=== PATIENT | female | born 1940 | race African-American/Black ===

== ENCOUNTER 2018-12-25 15:56 | Inpatient (IN) | payer MEDICARE, OTHER ==
[~2018-12-25] VITALS: Ht 154.9 cm; Wt 86.0 kg
[~2018-12-25 15:56] MED LIST: OXYM15MI4 NS; TRAM-48 PO
--- NOTE | 2018-12-25 16:56 | PHYS DOC ---
Past History Past Medical History: Bronchitis, Hypertension, Renal Disease (DA ROSALES DO) Past Surgical History: Cholecystectomy, Tubal ligation, Other Additional Past Surgical Histo: back surgery (DA ROSALES DO) Alcohol Use: None Drug Use: None (DA ROSALES DO) Adult General Chief Complaint Chief Complaint: HYPERTENSION HPI HPI 78-year-old female presents with hypertension. She was sent her by her user experience manager. At the office she had blood pressure of 200/110. He recommended she come to the emergency room. The patient is only on metoprolol and Lasix. The metoprolol is for rate control and the Lasix for swelling. The patient is unsure how long she's had high blood pressure. She has CKD stage III. She denies fever or chills. Her only complaint is the feeling of something in her left ear. Denies change in hearing. She has no other complaints. (DA ROSALES DO) Review of Systems Review of Systems Constitutional: Denies fever or chills [] Eyes: Denies change in visual acuity, redness, or eye pain [] HENT: Feeling of object in left ear[] Respiratory: Denies cough or shortness of breath [] Cardiovascular: No additional information not addressed in HPI [] GI: Denies abdominal pain, nausea, vomiting, bloody stools or diarrhea [] : Denies dysuria or hematuria [] Musculoskeletal: Denies back pain or joint pain [] Integument: Denies rash or skin lesions [] Neurologic: Denies headache, focal weakness or sensory changes [] Endocrine: Denies polyuria or polydipsia [] All other systems were reviewed and found to be within normal limits, except as documented in this note. (DA ROSALES DO) Allergies Allergies Allergies Coded Allergies Type Severity Reaction Last Updated Verified No Known Drug Allergies 12/25/18 No (DA ROSALES DO) Physical Exam Physical Exam Constitutional: Well developed, obese, well nourished, no acute distress, non- toxic appearance. [] HENT: Normocephalic, atraumatic, bilateral external ears normal, oropharynx moist, no oral exudates, nose normal. Patient's left tympanic membrane and ear canal normal. Mild amount of wax.[] Eyes: PERRLA, EOMI, conjunctiva normal, no discharge. [] Neck: Normal range of motion, no tenderness, supple, no stridor. [] Cardiovascular:Heart rate regular rhythm, no murmur [] Lungs & Thorax: Bilateral breath sounds clear to auscultation [] Abdomen: Bowel sounds normal, soft, no tenderness, no masses, no pulsatile masses. [] Skin: Warm, dry, no erythema, no rash. [] Back: No tenderness, no CVA tenderness. [] Extremities: No tenderness, no cyanosis, no clubbing, ROM intact, 2+ non-pitting edema bilaterally to the knees. [] Neurologic: Alert and oriented X 3, normal motor function, normal sensory function, no focal deficits noted. [] Psychologic: Affect normal, judgement normal, mood normal. [] (DA ROSALES DO) Current Patient Data Vital Signs Vital Signs Date Time Temp Pulse Resp B/P (MAP) Pulse Ox O2 Delivery O2 Flow Rate FiO2 12/25/18 16:09 98.0 76 30 100 Room Air (DA ROSALES DO) EKG EKG [] (DA ROSALES DO) Radiology/Procedures Radiology/Procedures [] (DA ROSALES DO) Course & Med Decision Making Course & Med Decision Making Pertinent Labs and Imaging studies reviewed. (See chart for details) I gave the patient 25 mg of losartan as this would be a first-line potential treatment for hypertension in a CKD patient. Her pressure has improved to 164/97. Her labs are pending. The patient's workup is still pending. I am signing the patient out to Dr. Hoffmann at 1800 hrs. He will determine her final disposition. [] (DA ROSALES DO) Course & Med Decision Making Impression: 1. Accelerated HTN 2. Hypokalemia 3.1 3. Chronic Renal Dz Creat 1.5 4. CHF- Acute on Chronic BNP 6859 5. Hx CADz, Elevated Trop. 0.098 6. Afib vs PAC's 7. Blind- congenital cataracts Admit to Dr. Braswell (MERARI HOFFMANN MD) Melissa Disclaimer Melissa Disclaimer This electronic medical record was generated, in whole or in part, using a voice recognition dictation system. (DA ROSALES DO) Departure Departure: Impression: Primary Impression: Hypertension Disposition: HOME, SELF-CARE Condition: IMPROVED Referrals: CHRISTINE XIAO MD (PCP) Melissa Disclaimer This chart was dictated in whole or in part using Voice Recognition software in a busy, high-work load, and often noisy Emergency Department environment. It may contain unintended and wholly unrecognized errors or omissions. (MERARI HOFFMANN MD) Problem Qualifiers Primary Impression: Hypertension Hypertension type: unspecified Qualified Codes: I10 - Essential (primary) hypertension DA ROSALES DO Dec 25, 2018 16:56 MERARI HOFFMANN MD Dec 25, 2018 19:09
[2018-12-25] MEDS ORDERED: LOSARTAN 25 MG TABLET. PO STA (16:58)
[2018-12-25] MEDS ORDERED: LOSA25TA11 PO (17:28)
[2018-12-25 17:57] LABS: ALBUMIN 3.4 g/dL (3.4-5.0); ALBUMIN/GLOBULIN RATIO 0.9 (1.0-1.7); CALCIUM 8.8 mg/dL (8.5-10.1); CREATININE 1.5 mg/dL (0.6-1.0); GFR 40.4; POTASSIUM 3.1 mmol/L (3.5-5.1); TOTAL BILIRUBIN 0.7 mg/dL (0.2-1.0); TOTAL PROTEIN 7.2 g/dL (6.4-8.2)
[2018-12-25 18:07] LABS: BASO % 0 % (0-3); EOS # 0.1 x10^3/uL (0.0-0.7); EOS % 1 % (0-3); HEMATOCRIT 36.5 % (36.0-47.0); HEMOGLOBIN 12.1 g/dL (12.0-15.5); LYMPH # 1.1 x10^3/uL (1.0-4.8); LYMPH % 10 % (24-48); MEAN CORPUSCULAR HEMOGLOBIN 32 pg (25-35); MEAN CORPUSCULAR HGB CONC 33 g/dL (31-37); MEAN CORPUSCULAR VOLUME 95 fL (79-100); MONO # 0.5 x10^3/uL (0.0-1.1); MONO % 5 % (0-9); NEUT # 8.4 x10^3uL (1.8-7.7); NEUT % 83 % (31-73); PLATELET COUNT 252 x10^3/uL (140-400); RED BLOOD COUNT 3.85 x10^6/uL (3.50-5.40); RED CELL DISTRIBUTION WIDTH 13.3 % (11.5-14.5); WHITE BLOOD COUNT 10.2 x10^3/uL (4.0-11.0)
[2018-12-25] MEDS ORDERED: cloNIDine HCL 0.1 MG TABLET PO ONE (18:30)
[2018-12-25] MEDS ORDERED: cloNIDine TTS-2 1 PATCH PATCH TD ONE ×2 (18:30→19:30)
[2018-12-25] MEDS ORDERED: POTASSIUM CHLORIDE 20 MEQ TABLET.ER. PO ONE ×2 (18:30→19:30)
[2018-12-25] MEDS ORDERED: FUROSEMIDE 40 MG/4 ML VIAL IVP ONE ×2 (18:30→19:30)
--- NOTE | 2018-12-25 19:12 | EKG ---
[address] [address] Test Date: 2018-12-25 Test Time: 18:43:34 Pat Name: MAGDA ROSALES Department: Room: Gender: F [employer]: : 1940 Requested By: MERARI RIZVI Order Number: [id number] Reading MD: Keon Duval MD Measurements Intervals [place] Rate: 77 P: 43 MS: 158 QRS: 60 QRSD: 78 T: -22 QT: 388 QTc: 441 Interpretive Statements SINUS RHYTHM ATRIAL PREMATURE COMPLEX(ES) Electronically Signed On 01-06-2019 22:05:57 CDT by Keon Duval MD
[2018-12-25] MEDS ORDERED: ONDANSETRON PF 4 MG/2 ML VIAL. IV PRN (19:15)
[2018-12-25] MEDS ORDERED: ACETAMINOPHEN 325 MG TABLET PO PRN (19:15)
[2018-12-25 20:04] LABS: BACTERIA,URINE FEW /HPF (0-FEW); BILIRUBIN,URINE NEG (NEG); CLARITY,URINE CLEAR; COLOR,URINE YELLOW; GLUCOSE,URINE NEG (NEG); NITRITE,URINE NEG (NEG); SQUAMOUS EPITHELIAL CELL,UR FEW /LPF; UROBILINOGEN,URINE 0.2 mg/dL (0.2 mg/dL)
[2018-12-25 20:45] VITALS: BP 172/82
[2018-12-25 20:46] VITALS: BP 165/89
[2018-12-25] MEDS ORDERED: ENOXAPARIN ** NOTE DOSE ** SYRINGE SQ SCH (21:00)
[2018-12-25] MEDS ORDERED: NITROGLYCERIN OINT 1 GM PACKET. TP SCH (21:00)
[2018-12-25] MEDS ORDERED: RAMI10CA53 PO (22:17)
[2018-12-25] MEDS ORDERED: METO200T46 PO (22:17)
[2018-12-25] MEDS ORDERED: FURO40TA4 PO (22:17)
[2018-12-25] MEDS ORDERED: ALLO100T PO (22:17)
[2018-12-25] MEDS ORDERED: OMEP40CA5 PO (22:17)
[2018-12-25] MEDS ORDERED: PARI1CAP PO (22:17)
--- NOTE | 2018-12-25 22:23 | NUR ---
The patient, MAGDA ROSALES, 78 y/o, F admitted by DARIN PATEL MD, was given written information regarding hospital policies, unit procedures and contact persons. Valuables were checked and noted. PT oriented to unit. Reviewed PTs PMH, PSH, SH, FH and medications.
[2018-12-25 23:05] VITALS: BP 151/83
[2018-12-26 05:30] VITALS: BP 138/80
[2018-12-26 07:37] LABS: BASO # 0.1 x10^3/uL (0.0-0.2); BASO % 1 % (0-3); EOS # 0.1 x10^3/uL (0.0-0.7); EOS % 1 % (0-3); HEMATOCRIT 35.7 % (36.0-47.0); HEMOGLOBIN 11.9 g/dL (12.0-15.5); LYMPH # 1.6 x10^3/uL (1.0-4.8); LYMPH % 20 % (24-48); MEAN CORPUSCULAR HEMOGLOBIN 31 pg (25-35); MEAN CORPUSCULAR HGB CONC 33 g/dL (31-37); MEAN CORPUSCULAR VOLUME 94 fL (79-100); MONO # 0.6 x10^3/uL (0.0-1.1); MONO % 7 % (0-9); NEUT # 5.8 x10^3uL (1.8-7.7); NEUT % 71 % (31-73); PLATELET COUNT 238 x10^3/uL (140-400); RED BLOOD COUNT 3.81 x10^6/uL (3.50-5.40); RED CELL DISTRIBUTION WIDTH 13.4 % (11.5-14.5); WHITE BLOOD COUNT 8.2 x10^3/uL (4.0-11.0)
--- NOTE | 2018-12-26 07:40 | RAD ---
EXAM: AP View of the chest DATE: 12/25/2018 6:13 PM INDICATION: Shortness of air, crackles COMPARISON: 02/17/2014 FINDINGS: The heart is moderately enlarged. Atherosclerotic calcifications of the tortuous aorta are seen. Retrocardiac left lung base airspace opacities are seen. Small left pleural effusion. No pneumothorax. IMPRESSION: Cardiac airspace opacities may represent developing consolidation or atelectasis. Imaging follow-up to resolution is recommended. Electronically signed by: Aamir Daniel MD (12/26/2018 7:37 AM) [facility]
[2018-12-26 07:51] LABS: CALCIUM 8.8 mg/dL (8.5-10.1); CREATININE 1.5 mg/dL (0.6-1.0); GFR 40.4; MAGNESIUM 1.1 mg/dL (1.8-2.4)
[2018-12-26] MEDS ORDERED: MAGNESIUM OXIDE 400 MG TABLET PO SCH (09:00)
--- NOTE | 2018-12-26 09:19 | PDOC2 ---
SHANTANU MUNROE ANTHROPOLOGY AND ARCHEOLOGY INSTRUCTOR 12/26/18 0919: CARDIAC CONSULT DATE OF CONSULT Date Of Consult DATE: 12/26/18 TIME: 09:17 REASON FOR CONSULT Reason for Consult Accelerated Hypertension CHF Elevated Troponin REFERRING PHYSICIAN Referring Physician Dr. Braswell SOURCE Source: Chart review, Patient HPI History of Present Illness This is an 78 yo female, with a history of HTN and CKD, who presented from nephrology office secondary to elevated blood pressure. SBP noted near 200. Was referred to the ED for further evaluation and treatment. Patient denies any chest pain, palpitations, dizziness, diaphoresis, or nausea/vomiting. Does report some mild shortness of breath recently. Was worse yesterday. Takes Lasix at home PRN, but does not weigh herself daily. Feeling better following diuresis. PAST MEDICAL HISTORY Cardiovascular: HTN, hyperipidemia GI: GERD Heme/Onc: Anemia NOS Musculoskeletal: Osteoarthritis Rheumatologic: Gout Renal/: Chronic renal insuff PAST SURGICAL HISTORY Past Surgical History: Cholecystectomy, Tubal Ligation, Other (back surgery, eye surgery ) FAMILY HISTORY Family History: Cancer, Heart Disease (father ), Hypertension SOCIAL HISTORY Smoke: No ALCOHOL: none Drugs: None Lives: with Family CURRENT MEDICATIONS Current Medications Current Medications Losartan Potassium (Cozaar) 25 mg 1X STAT PO Last administered on 12/25/18at 17:15; Start 12/25/18 at 16:58; Stop 12/25/18 at 16:59; Status DC Clonidine HCl (Catapres) 0.1 mg 1X ONCE PO Last administered on 12/25/18at 18:23; Start 12/25/18 at 18:30; Stop 12/25/18 at 18:31; Status DC Clonidine HCl (Catapres Tts-2) 1 patch 1X ONCE TD Last administered on 12/25/18at 18:23; Start 12/25/18 at 18:30; Stop 12/25/18 at 18:31; Status DC Furosemide (Lasix) 40 mg 1X ONCE IVP Last administered on 12/25/18at 18:24; Start 12/25/18 at 18:30; Stop 12/25/18 at 18:31; Status DC Potassium Chloride (Klor-Con) 40 meq 1X ONCE PO Last administered on 12/25/18at 18:24; Start 12/25/18 at 18:30; Stop 12/25/18 at 18:31; Status DC Ondansetron HCl (Zofran) 4 mg PRN Q4HRS PRN IV NAUSEA/VOMITING; Start 12/25/18 at 19:15; Stop 12/26/18 at 19:14 Acetaminophen (Tylenol) 650 mg PRN Q4HRS PRN PO FEVER; Start 12/25/18 at 19:15; Stop 12/26/18 at 19:14 Clonidine HCl (Catapres Tts-2) 1 patch 1X ONCE TD ; Start 12/25/18 at 19:30; Stop 12/25/18 at 19:31; Status Cancel Furosemide (Lasix) 40 mg 1X ONCE IVP ; Start 12/25/18 at 19:30; Stop 12/25/18 at 19:31; Status DC Potassium Chloride (Klor-Con) 40 meq 1X ONCE PO Last administered on 12/25/18at 22:38; Start 12/25/18 at 19:30; Stop 12/25/18 at 19:31; Status DC Aspirin (Children'S Aspirin) 81 mg DAILY PO ; Start 12/26/18 at 09:00 Enoxaparin Sodium (Lovenox 80mg Syringe) 80 mg BID SQ Last administered on 12/25/18at 22:38; Start 12/25/18 at 21:00 Nitroglycerin (Nitro-Bid Oint) 1 inch TID TP Last administered on 12/25/18at 22:38; Start 12/25/18 at 21:00 Influenza Virus Vaccine Quadrival (Afluria Quad 2019-20 (3yr Up) Syringe) 0.5 ml ONCE ONCE VAX IM ; Start 12/27/18 at 09:00; Stop 12/27/18 at 09:01; Status UNV Magnesium Oxide (Magnesium Oxide) 400 mg BID PO ; Start 12/26/18 at 09:00; Stop 12/27/18 at 21:01 Active Scripts Active Reported Allopurinol 100 Mg Tablet 100 Mg PO DAILY Furosemide 40 Mg Tablet 40 Mg PO DAILY Omeprazole 40 Mg Capsule.dr 40 Mg PO DAILY Ramipril 10 Mg Capsule 10 Mg PO DAILY Zemplar (Paricalcitol) 1 Mcg Capsule 1 Mcg PO DAILY Metoprolol Succinate ( Xl ) (Metoprolol Succinate) 200 Mg Tab.er.24h 200 Mg PO DAILY ALLERGIES Allergies: Coded Allergies: No Known Drug Allergies (Unverified , 12/25/18) ROS Review of Systems 14 point ROS conducted with pertinent positives noted above in HPI PHYSICAL EXAM General: Alert, Oriented X3, Cooperative, No acute distress HEENT: Atraumatic, Mucous membr. moist/pink Lungs: Clear to auscultation Heart: Regular rate, Normal S1, Normal S2, Other (distant heart tones ) Abdomen: Soft, No tenderness Extremities: No edema Skin: No breakdown Neuro: Normal speech, Sensation intact Psych/Mental Status: Mental status NL, Mood NL MUSCULOSKELETAL: Osteoarthritic changes both hands VITALS Vital Signs Vital Signs Date Time Temp Pulse Resp B/P (MAP) Pulse Ox O2 Delivery O2 Flow Rate FiO2 12/26/18 05:30 97.6 81 20 138/80 (99) 93 Room Air LABS LABS Laboratory Tests Test 12/25/18 17:05 12/25/18 17:48 12/25/18 19:00 12/26/18 07:28 Sodium Level 140 mmol/L (136-145) 143 mmol/L (136-145) Potassium Level 3.1 mmol/L (3.5-5.1) 4.0 mmol/L (3.5-5.1) Chloride Level 103 mmol/L (98-107) 103 mmol/L (98-107) Carbon Dioxide Level 28 mmol/L (21-32) 29 mmol/L (21-32) Anion Gap 9 (6-14) 11 (6-14) Blood Urea Nitrogen 14 mg/dL (7-20) 13 mg/dL (7-20) Creatinine 1.5 mg/dL (0.6-1.0) 1.5 mg/dL (0.6-1.0) Estimated GFR (Cockcroft-Gault) 40.4 40.4 BUN/Creatinine Ratio 9 (6-20) Glucose Level 100 mg/dL (70-99) 86 mg/dL (70-99) Calcium Level 8.8 mg/dL (8.5-10.1) 8.8 mg/dL (8.5-10.1) Total Bilirubin 0.7 mg/dL (0.2-1.0) Aspartate Amino Transf (AST/SGOT) 14 U/L (15-37) Alanine Aminotransferase (ALT/SGPT) 6 U/L (14-59) Alkaline Phosphatase 86 U/L (46-116) QA-Kmm-N-Type Natriuretic Peptide 6859 pg/mL (0-449) Total Protein 7.2 g/dL (6.4-8.2) Albumin 3.4 g/dL (3.4-5.0) Albumin/Globulin Ratio 0.9 (1.0-1.7) White Blood Count 10.2 x10^3/uL (4.0-11.0) 8.2 x10^3/uL (4.0-11.0) Red Blood Count 3.85 x10^6/uL (3.50-5.40) 3.81 x10^6/uL (3.50-5.40) Hemoglobin 12.1 g/dL (12.0-15.5) 11.9 g/dL (12.0-15.5) Hematocrit 36.5 % (36.0-47.0) 35.7 % (36.0-47.0) Mean Corpuscular Volume 95 fL (79-100) 94 fL (79-100) Mean Corpuscular Hemoglobin 32 pg (25-35) 31 pg (25-35) Mean Corpuscular Hemoglobin Concent 33 g/dL (31-37) 33 g/dL (31-37) Red Cell Distribution Width 13.3 % (11.5-14.5) 13.4 % (11.5-14.5) Platelet Count 252 x10^3/uL (140-400) 238 x10^3/uL (140-400) Neutrophils (%) (Auto) 83 % (31-73) 71 % (31-73) Lymphocytes (%) (Auto) 10 % (24-48) 20 % (24-48) Monocytes (%) (Auto) 5 % (0-9) 7 % (0-9) Eosinophils (%) (Auto) 1 % (0-3) 1 % (0-3) Basophils (%) (Auto) 0 % (0-3) 1 % (0-3) Neutrophils # (Auto) 8.4 x10^3uL (1.8-7.7) 5.8 x10^3uL (1.8-7.7) Lymphocytes # (Auto) 1.1 x10^3/uL (1.0-4.8) 1.6 x10^3/uL (1.0-4.8) Monocytes # (Auto) 0.5 x10^3/uL (0.0-1.1) 0.6 x10^3/uL (0.0-1.1) Eosinophils # (Auto) 0.1 x10^3/uL (0.0-0.7) 0.1 x10^3/uL (0.0-0.7) Basophils # (Auto) 0.0 x10^3/uL (0.0-0.2) 0.1 x10^3/uL (0.0-0.2) Troponin I Quantitative 0.098 ng/mL (0-0.055) 0.155 ng/mL (0-0.055) Urine Collection Type Unknown Urine Color Yellow Urine Clarity Clear Urine pH 5.5 Urine Specific [place] 1.010 Urine Protein Trace (NEG-TRACE) Urine Glucose (UA) Neg mg/dL (NEG) Urine Ketones (Stick) Neg mg/dL (NEG) Urine Blood Trace (NEG) Urine Nitrite Neg (NEG) Urine Bilirubin Neg (NEG) Urine Urobilinogen Dipstick 0.2 mg/dL (0.2 mg/dL) Urine Leukocyte Esterase Neg (NEG) Urine RBC 3-5 /HPF (0-2) Urine WBC 1-4 /HPF (0-4) Urine Squamous Epithelial Cells Few /LPF Urine Bacteria Few /HPF (0-FEW) Magnesium Level 1.1 mg/dL (1.8-2.4) ECHOCARDIOGRAM Echocardiogram <Conclusion> The left ventricle is normal size. The left ventricular systolic function is normal. The Ejection Fraction is 55-60%. There is no significant aortic valvular stenosis. Doppler and Color Flow revealed no significant aortic regurgitation. Doppler and Color Flow revealed mild mitral regurgitation. Doppler and Color Flow revealed moderate tricuspid regurgitation. The PA pressure was estimated at 50 mmHg. Doppler and Color Flow revealed mild pulmonic valvular regurgitation. There is no evidence of significant pericardial effusion. DATE: 01/14/14 1419 STRESS TEST Stress Test Conclusion 1. No EKG evidence of inducible ischemia. 2. Nuclear images on a technically difficult study show inferior reversible ischemia. 3. Normal left ventricular systolic function with an ejection fraction of 72%. 4. Moderate risk Lexiscan nuclear stress test showing reversible ischemia in the inferior region. DATE: 01/14/14 1443 HEART CATH Heart Cath FINDINGS: 1. Hemodynamics: Normal left ventricular end-diastolic pressure of 15 mmHg. No pullback gradient across the aortic valve. 2. Left ventriculography: Normal left ventricle systolic function with ejection fraction estimated at 60%. No significant mitral regurgitation seen. 3. Coronary angiography: a. The left main coronary artery arose from the left sinus of Valsalva, gave rise to the left anterior descending and left circumflex arteries and did not show any significant stenosis. b. The left anterior descending artery did not show any significant stenosis. c. The left circumflex artery did not show any significant stenosis. d. The right coronary artery was a large and dominant vessel arising from the right sinus of Valsalva that did not show any significant stenosis. Conclusion 1. No significant coronary artery disease 2. Normal left ventricle systolic function with ejection fraction estimated at 60% 3. No significant mitral regurgitation or aortic stenosis. DATE: 02/04/14 1143 ASSESSMENT/PLAN Assessment/Plan 1. Accelerated hypertension; reports compliance with meds 2. Mild troponin elevation; highest 0.155. most probably type II, demand ischemic in the setting of accelerated HTN and CKD. Cath 2014 without significant CAD 3. Dyspnea in the setting of acute on chronic diastolic HF; Improved with diuresis 4. CKD; Cr stable. 5. Hypokalemia, hypomagnesemia; replaced Recommendations ASA Echo to assess LV systolic function Resume home antiHTN therapy. Add amlodipine Hydralazine PRN Daily weights, 2 Gm Na restriction Lasix therapy BERTO RODRIGUEZ MD 12/26/18 7629: CARDIAC CONSULT ASSESSMENT/PLAN Assessment/Plan Patient seen and examined. Agree with above nurse practitioner note. 78-year-old woman presenting to the hospital the setting of dyspnea and hypertension She was found to have severe tricuspid regurgitation with severe pulmonary hypertension Depending on the goals of care she will likely need a right heart catheterization and further titration of medical therapy. We'll await discussion with her family members and consider inpatient versus outpatient evaluation. Continue diuretics. Supportive care. SHANTANU MUNROE APRN Dec 26, 2018 09:19 BERTO RODRIGUEZ MD Dec 26, 2018 18:54
[2018-12-26] MEDS ORDERED: hydrALAZINE 20 MG/ML VIAL. IV PRN (09:30)
[2018-12-26 09:51] VITALS: BP 167/86
[2018-12-26] MEDS ORDERED: FUROSEMIDE 40 MG TABLET PO SCH (10:00)
[2018-12-26] MEDS: FUROSEMIDE 20 MG TABLET PO SCH (10:29)
[2018-12-26] MEDS: ASPIRIN 81 MG TAB.CHEW PO SCH (10:29)
[2018-12-26] MEDS: LISINOPRIL 20 MG TABLET PO SCH (10:29)
[2018-12-26] MEDS: METOPROLOL SUCC 24HR ER 50 MG TAB.ER.24H. PO SCH (10:29)
--- NOTE | 2018-12-26 11:49 | NUR ---
Anju Bonilla APRN, hieu'd Nitro paste and Clonidine patch. This RN removed patch. Chad also restarted pt's home medications, and when called by this RN to verify Metoprolol dosing asked this RN to confirm with pt. This RN confirmed dose with pt and administered all medications as ordered. WCTM. Altagracia Rivero RN
[2018-12-26 15:06] VITALS: BP 142/83
--- NOTE | 2018-12-26 15:35 | CARD ---
MR#: [id number] Date of Study: 12/26/2018 Ordering Physician: SHANTANU MUNROE, Referring Physician: SHANTANU MUNROE, Tech: Parvin Barry RDCS APPROVED REPORT EXAM: Two-dimensional and M-mode echocardiogram with Doppler and color Doppler. Other Information Quality : AverageHR: 70bpm Rhythm : NSR INDICATION Elev troponin 2D DIMENSIONS RVDd3.8 (2.9-3.5cm)Left Atrium(2D)3.0 (1.6-4.0cm) IVSd0.7 (0.7-1.1cm)Aortic Root(2D)2.4 (2.0-3.7cm) LVDd4.1 (3.9-5.9cm)LVOT Diameter1.7 (1.8-2.4cm) PWd0.9 (0.7-1.1cm)LVDs2.9 (2.5-4.0cm) FS (%) 30.2 %SV44.1 ml LVEF(%)58.0 (>50%) M-Mode DIMENSIONS Left Atrium(MM)4.30 (2.5-4.0cm)Aortic Root2.67 (2.2-3.7cm) Aortic Valve AoV Peak Tim.149.3cm/sAoV VTI29.8cm AO Peak GR.8.9mmHgLVOT Peak Tim.92.3cm/s LVOT VTI 23.14cmAO Mean GR.4mmHg MARAL (VMAX)1.86fl9CJU (VTI)1.86cm2 Mitral Valve MV E Dlojmule183.4cm/sMV E Peak Gr.146mmHg MV DECEL [id number] A Hizibsva827.8cm/s MV E Mean Gr.5mmHgE/A Ratio1.3 Pulmonary Valve PV Peak Tmhxdrvh035.7cm/sPV Peak Grad.4mmHg Tricuspid Valve TR P. [id number]/sRAP EHPKUZPU2czCl TR Peak Gr.59jiQgOZMP36gkGa LEFT VENTRICLE The left ventricle is normal size. There is borderline concentric left ventricular hypertrophy. The l eft ventricular systolic function is normal and the ejection fraction is within normal range. The Eje ction Fraction is 55-60%. There is normal LV segmental wall motion. Transmitral Doppler flow pattern is Grade II-pseudonormal filling dynamics. RIGHT VENTRICLE The right ventricle is mildly dilated. There is normal right ventricular wall thickness. Systolic fun ction is mildly reduced. ATRIA The left atrium size is normal. The right atrium is mildly dilated. The interatrial septum is intact with no evidence for an atrial septal defect or patent foramen ovale as noted on 2-D or Doppler imagi ng. AORTIC VALVE The aortic valve is trileaflet. The aortic valve is mildly calcified. Doppler and Color Flow revealed no significant aortic regurgitation. There is no significant aortic valvular stenosis. MITRAL VALVE The mitral valve is mildly thickened. There is no evidence of mitral valve prolapse. There is mild mi tral valve stenosis. Calculated mitral valve area is 1.2 cm2 with maximum pressure gradient of 13 mmH g and mean pressure gradient of 5 mmHg. Doppler and Color-flow revealed moderate mitral regurgitation . TRICUSPID VALVE The tricuspid valve is normal in structure and function. Doppler and Color Flow revealed severe tricu spid regurgitation. Pulmonary artery pressure was greater than 80 mmHg. There is no tricuspid valve s tenosis. PULMONIC VALVE The pulmonic valve is not well visualized. GREAT VESSELS The aortic root is normal in size. The ascending aorta is normal in size. The IVC is normal in size a nd collapses >50% with inspiration. PERICARDIAL EFFUSION There is no evidence of significant pericardial effusion. Critical Notification Critical Value: No <Conclusion> The left ventricle is normal size. The left ventricular systolic function is normal and the ejection fraction is within normal range. The Ejection Fraction is 55-60%. There is borderline concentric left ventricular hypertrophy. There is no significant aortic valvular stenosis. Doppler and Color Flow revealed no significant aortic regurgitation. There is mild mitral valve stenosis. Calculated mitral valve area is 1.2 cm2 with maximum pressure gradient of 13 mmHg and mean pressure g radient of 5 mmHg. Doppler and Color-flow revealed moderate mitral regurgitation. Doppler and Color Flow revealed severe tricuspid regurgitation. Pulmonary artery pressure was greater than 80 mmHg. Signed by : Brendan Mccurdy MD Electronically Approved : 12/26/2018 15:34:54
--- NOTE | 2018-12-26 17:15 | NUR ---
Pt did not want dinner, stating, "What the doctors told me is a lot to think about." Pt was offered a [employer] bar and accepted and ate. WCTM. Altagracia Rivero RN
--- NOTE | 2018-12-26 17:27 | HP ---
ADMIT DATE: 12/25/2018 HISTORY OF PRESENT ILLNESS: The patient is an 78-year-old -[place] female patient who apparently was seen by her pan helper at the office. Her blood pressure was 200/110. He recommended that she come to the Emergency Room. She is only on metoprolol and Lasix, metoprolol is for rate control. The patient is unsure how long she has had high blood pressure. She has chronic kidney disease stage 3. She denies any fever or chills. Her only complaint is feeling of something in her left ear. Denied any change in the hearing. Denied any other complaint. She was extensively evaluated in the Emergency Room and basically while in the Emergency Room, she was found to have elevated blood pressure with the blood pressure of 164/97 on arrival. Her chemistry showed that her creatinine was high at 1.5. Her first set of troponin was high at 0.098 and her beta natriuretic peptide was 6850. She was also hypokalemic and extremely hypomagnesemic only 1.1 and therefore she was admitted to control her blood pressure, to replenish her magnesium and potassium and to do 2 more sets of cardiac enzymes. PAST MEDICAL HISTORY: Significant for hypertension, hyperlipidemia, chronic kidney disease, rheumatic fever and glaucoma. She is legally blind. PAST SURGICAL HISTORY: Significant for back surgery, cholecystectomy, tubal ligation, bilateral cataract extraction. ALLERGIES: She has no known drug allergies. MEDICATIONS: She is currently on following medications: She is on metoprolol succinate 200 mg daily. She is on ramipril 10 mg daily, furosemide 40 mg once a day, omeprazole 40 mg once a day, paricalcitol 1 mcg for Zemplar once a day, allopurinol 100 mg once a day. FAMILY HISTORY: She has one sister still alive and is older. She has 2 brothers who of cancer. One brother of emphysema. One sister of cancer and one sister of emphysema. Both parents are , but they when she was too young. SOCIAL HISTORY: She is , has 2 daughters and 1 son. She never smoked, does not drink alcohol or use any recreational drugs. She used to work with chairs. REVIEW OF SYSTEMS: The patient is obviously legally blind, but denied any earache, tinnitus or sensorineural deafness. Denied any nosebleeds, stuffy nose or postnasal drip. Denied any sore throat, sore tongue, toothache, hoarseness of voice or difficulty swallowing. Denied any nausea, vomiting, diarrhea or constipation. Denied any hematemesis, melena, hematochezia. Denied any dysuria, frequency or hematuria. Denied any chest pain, shortness of breath, orthopnea, paroxysmal nocturnal dyspnea. Denied any cough, phlegm, or hemoptysis. Denied any chills, rigors or fever. PHYSICAL EXAMINATION: On arrival to the Emergency Room: VITAL SIGNS: Her heart rate was 76, blood pressure was 164/97, temperature was 98, respiratory rate was 30, and oxygen saturation 100% on room air. HEAD, EYES, EARS, NOSE AND THROAT: Showed normocephalic, atraumatic. NECK: Supple. HEART: Showed normal first and second heart sounds. No gallop, rub or murmur. CHEST: Clear to auscultation. No crepitation or rhonchi. ABDOMEN: Distended, soft, nontender. NEUROLOGIC: She is legally blind, but otherwise all her cranial nerves are intact. She moves all extremities without difficulty. PSYCHOLOGICAL: Her affect, judgment and mood were normal. LABORATORY DATA: While in the Emergency Room, she has had lab work done showed her serum sodium 140, potassium 3.1, chloride 103, bicarbonate 28, anion gap of 9, BUN 14, creatinine 1.5, estimated GFR was 40 mL per minute. Her glucose was 100, calcium was 8.8. Total bilirubin, AST, ALT, alkaline phosphatase were normal. Her first troponin was 0.098. Beta natriuretic peptide was 6859. Total protein was 7.2, albumin 3.4. Her white cell count was 10,200, hemoglobin 12.1, hematocrit 36, MCV 95, and platelet count of 252,000 with normal manual differential. Urinalysis was essentially unremarkable. The urine was negative for nitrite, negative for leukocyte esterase, only 3-5 rbc's, 1-4 wbc's, and very few bacteria. She did have a chest x-ray, which showed that the cardiac airspace opacities may represent developing consolidation or atelectasis. Imaging followup to confirm resolution is recommended. The heart is moderately enlarged. Atherosclerotic calcification of the tortuous aorta seen. The retrocardiac left lung base airspace opacities are seen. Small left pleural effusion, no pneumothorax. ASSESSMENT AND PLAN: The patient was admitted with accelerated hypertension, hypokalemia, chronic kidney disease, acute on chronic congestive heart failure, coronary artery disease with slightly elevated troponin at 0.98, atrial fibrillation and was blind due to congenital cataract and glaucoma. PLAN: We will do 2 more sets of cardiac enzyme. We will replenish her potassium and consult the cardiology team and arrange to check her fasting lipid profile and arrange for an echocardiogram to evaluate her left ventricular systolic function as she has rheumatic fever before. DARIN PATEL MD DR: ALVARO/ginger JOB#: [id number] / [id number]
[2018-12-26] MEDS ORDERED: MAGNESIUM SULFATE 2GM 50 ML IV ONE (17:30)
[2018-12-26] MEDS: MAGNESIUM OXIDE 400 MG TABLET PO SCH ×2 (18:32→20:59)
[2018-12-26 19:00] VITALS: BP 161/81
[2018-12-26] MEDS ORDERED: ENOXAPARIN ** NOTE DOSE ** SYRINGE SQ SCH (21:00)
[2018-12-26 23:59] VITALS: BP 139/79
--- NOTE | 2018-12-27 00:51 | PN ---
DATE: SUBJECTIVE: The patient is resting, slightly propped up in bed, no apparent distress. She has had no further episodes of shortness of breath, cough or phlegm. Her blood pressure has been much better controlled. Her potassium has improved, replenished from 3.1 to 4. She has also severe hypomagnesemia. We did another set of cardiac enzymes, showed troponin to be 0.155. Her serum triglycerides were 62. Total cholesterol was 227, LDL cholesterol 140, VLDL was 12, and HDL cholesterol was 75 and the ratio was 3. She has had an echocardiogram done, which basically showed that her left ventricular size is normal. Left ventricular systolic function is normal with an ejection fraction within normal range. The ejection fraction is 55-60%. There is borderline concentric left ventricular hypertrophy. There is no significant aortic valvular stenosis. Doppler and color flow revealed no significant aortic regurgitation. There is mild mitral valve stenosis. Calculated mitral valve area is 1.2 square cm with maximum pressure gradient of 13 mmHg and mean pressure gradient of 5 mmHg. Doppler and color flow revealed moderate mitral regurgitation. Doppler and color flow revealed severe tricuspid regurgitation. Pulmonary artery pressure was greater than 80 mmHg. PHYSICAL EXAMINATION: GENERAL: When I examined her this afternoon, she looked well and was clearly in no apparent respiratory distress, slightly pale, but no jaundice, cyanosis, or thyromegaly. No jugular venous distention. No limb edema. VITAL SIGNS: Her heart rate was 67, blood pressure 142/83, temperature was 97.8, respiratory rate was 20, and oxygen saturation was 94%. HEAD, EYES, EARS, NOSE AND THROAT: Showed normocephalic, atraumatic. NECK: Supple. HEART: Showed normal first and second heart sounds. No gallop or murmur. CHEST: Clear to auscultation. No crepitation or rhonchi. ABDOMEN: Distended, soft, nontender. NEUROLOGIC: She is legally blind, but all other cranial nerves are intact. She moves extremities without difficulty. Her intake over the last 24 hours was 450, output was 1550. LABORATORY DATA: As of this morning, her white cell count is down to 8200, hemoglobin 12, hematocrit 36, MCV 94 and platelet count 238,000. Her chemistry showed a serum sodium 143, potassium 4, chloride 103, bicarbonate 29, anion gap of 11, BUN 13, creatinine 1.5, estimated GFR was 40 mL per minute. Her glucose was 86, calcium was 8.8, magnesium was 1.1. Her second set of cardiac enzyme was high at 0.155. ASSESSMENT AND PLAN: Hypokalemia, resolved. Her potassium is up. She has 2 sets of cardiac enzymes that are trending upward, has hyperlipidemia, chronic kidney disease. Her hypertension is much better controlled. Echocardiogram showed severe tricuspid regurgitation, moderate mitral regurgitation and severe pulmonary hypertension. As per credentialing assistant, the plan is for her to perhaps transfer to [facility] to do a right heart catheterization and transesophageal echocardiogram. DARIN PATEL MD DR: ALVARO/ginger JOB#: [id number] / [id number]
[2018-12-27 05:30] VITALS: BP 157/89
[2018-12-27 06:42] LABS: CREATININE 1.6 mg/dL (0.6-1.0); GFR 37.5; POTASSIUM 3.4 mmol/L (3.5-5.1)
[2018-12-27] MEDS ORDERED: PANTOPRAZOLE 40 MG TABLET. PO SCH (07:30)
[2018-12-27] MEDS: MAGNESIUM OXIDE 400 MG TABLET PO SCH (07:56)
[2018-12-27] MEDS: METOPROLOL SUCC 24HR ER 50 MG TAB.ER.24H. PO SCH (07:56)
[2018-12-27] MEDS: FUROSEMIDE 20 MG TABLET PO SCH (07:57)
[2018-12-27] MEDS: LISINOPRIL 20 MG TABLET PO SCH (07:57)
[2018-12-27] MEDS: ASPIRIN 81 MG TAB.CHEW PO SCH (07:57)
--- NOTE | 2018-12-27 08:59 | PDOC ---
CARDIO Progress Notes Date & Time Date of Service DATE: 12/27/18 TIME: 08:47 Time of Evaluation 08:47 Subjective Notes feeling much better today Vitals Vitals Vital Signs Date Time Temp Pulse Resp B/P (MAP) Pulse Ox O2 Delivery O2 Flow Rate FiO2 12/27/18 07:59 72 157/89 12/27/18 05:30 97.9 18 Room Air 95.0 12/26/18 23:59 97 Weight Weight [ ] Input and Output I.O. Intake and Output 12/27/18 07:00 Intake Total 1290 ml Output Total 700 ml Balance 590 ml Intake Oral 1240 ml IV Total 50 ml Output Urine Total 700 ml # Voids 3 Laboratory Labs Laboratory Tests Test 12/25/18 17:05 12/25/18 17:48 12/25/18 19:00 12/26/18 07:28 Sodium Level 140 mmol/L (136-145) 143 mmol/L (136-145) Potassium Level 3.1 mmol/L (3.5-5.1) 4.0 mmol/L (3.5-5.1) Chloride Level 103 mmol/L (98-107) 103 mmol/L (98-107) Carbon Dioxide Level 28 mmol/L (21-32) 29 mmol/L (21-32) Anion Gap 9 (6-14) 11 (6-14) Blood Urea Nitrogen 14 mg/dL (7-20) 13 mg/dL (7-20) Creatinine 1.5 mg/dL (0.6-1.0) 1.5 mg/dL (0.6-1.0) Estimated GFR (Cockcroft-Gault) 40.4 40.4 BUN/Creatinine Ratio 9 (6-20) Glucose Level 100 mg/dL (70-99) 86 mg/dL (70-99) Calcium Level 8.8 mg/dL (8.5-10.1) 8.8 mg/dL (8.5-10.1) Total Bilirubin 0.7 mg/dL (0.2-1.0) Aspartate Amino Transf (AST/SGOT) 14 U/L (15-37) Alanine Aminotransferase (ALT/SGPT) 6 U/L (14-59) Alkaline Phosphatase 86 U/L (46-116) RU-Pne-M-Type Natriuretic Peptide 6859 pg/mL (0-449) Total Protein 7.2 g/dL (6.4-8.2) Albumin 3.4 g/dL (3.4-5.0) Albumin/Globulin Ratio 0.9 (1.0-1.7) White Blood Count 10.2 x10^3/uL (4.0-11.0) 8.2 x10^3/uL (4.0-11.0) Red Blood Count 3.85 x10^6/uL (3.50-5.40) 3.81 x10^6/uL (3.50-5.40) Hemoglobin 12.1 g/dL (12.0-15.5) 11.9 g/dL (12.0-15.5) Hematocrit 36.5 % (36.0-47.0) 35.7 % (36.0-47.0) Mean Corpuscular Volume 95 fL (79-100) 94 fL (79-100) Mean Corpuscular Hemoglobin 32 pg (25-35) 31 pg (25-35) Mean Corpuscular Hemoglobin Concent 33 g/dL (31-37) 33 g/dL (31-37) Red Cell Distribution Width 13.3 % (11.5-14.5) 13.4 % (11.5-14.5) Platelet Count 252 x10^3/uL (140-400) 238 x10^3/uL (140-400) Neutrophils (%) (Auto) 83 % (31-73) 71 % (31-73) Lymphocytes (%) (Auto) 10 % (24-48) 20 % (24-48) Monocytes (%) (Auto) 5 % (0-9) 7 % (0-9) Eosinophils (%) (Auto) 1 % (0-3) 1 % (0-3) Basophils (%) (Auto) 0 % (0-3) 1 % (0-3) Neutrophils # (Auto) 8.4 x10^3uL (1.8-7.7) 5.8 x10^3uL (1.8-7.7) Lymphocytes # (Auto) 1.1 x10^3/uL (1.0-4.8) 1.6 x10^3/uL (1.0-4.8) Monocytes # (Auto) 0.5 x10^3/uL (0.0-1.1) 0.6 x10^3/uL (0.0-1.1) Eosinophils # (Auto) 0.1 x10^3/uL (0.0-0.7) 0.1 x10^3/uL (0.0-0.7) Basophils # (Auto) 0.0 x10^3/uL (0.0-0.2) 0.1 x10^3/uL (0.0-0.2) Troponin I Quantitative 0.098 ng/mL (0-0.055) 0.155 ng/mL (0-0.055) Urine Collection Type Unknown Urine Color Yellow Urine Clarity Clear Urine pH 5.5 Urine Specific [place] 1.010 Urine Protein Trace (NEG-TRACE) Urine Glucose (UA) Neg mg/dL (NEG) Urine Ketones (Stick) Neg mg/dL (NEG) Urine Blood Trace (NEG) Urine Nitrite Neg (NEG) Urine Bilirubin Neg (NEG) Urine Urobilinogen Dipstick 0.2 mg/dL (0.2 mg/dL) Urine Leukocyte Esterase Neg (NEG) Urine RBC 3-5 /HPF (0-2) Urine WBC 1-4 /HPF (0-4) Urine Squamous Epithelial Cells Few /LPF Urine Bacteria Few /HPF (0-FEW) Magnesium Level 1.1 mg/dL (1.8-2.4) Triglycerides Level 62 mg/dL (0-150) Cholesterol Level 227 mg/dL (0-200) LDL Cholesterol, Calculated 140 mg/dL (0-100) VLDL Cholesterol, Calculated 12 mg/dL (0-40) Non-HDL Cholesterol Calculated 152 mg/dL (0-129) HDL Cholesterol 75 mg/dL (40-60) Cholesterol/HDL Ratio 3.0 Test 12/27/18 05:48 Sodium Level 140 mmol/L (136-145) Potassium Level 3.4 mmol/L (3.5-5.1) Chloride Level 100 mmol/L (98-107) Carbon Dioxide Level 33 mmol/L (21-32) Anion Gap 7 (6-14) Blood Urea Nitrogen 12 mg/dL (7-20) Creatinine 1.6 mg/dL (0.6-1.0) Estimated GFR (Cockcroft-Gault) 37.5 Glucose Level 83 mg/dL (70-99) Calcium Level 9.0 mg/dL (8.5-10.1) Magnesium Level 1.8 mg/dL (1.8-2.4) Troponin I Quantitative 0.060 ng/mL (0-0.055) Physical Exams HEENT: Neck Supple W Full Motion Chest: Symmetric Lungs: Clear to Auscultation Heart: S1S2, RRR, murmurs (2/6 systolic murmur ) Abdomen: Soft N/T Extremities: No Edema Neurology: alert, oriented, follow commands Assessment Assessment 1. Accelerated hypertension; better controlled 2. Mild troponin elevation; peak 0.155. most probably type II, demand ischemic in the setting of accelerated HTN and CKD. 3. Dyspnea, multifactorial. Improved 4. Valvular disease; moderate mitral regurgitation and severe tricuspid regurgitation. 5. Severe pulmonary hypertension; PAP 80 mmHg. 6. CKD; Cr stable 7. Hyperlipidemia; LDL 140 8. Hypokalemia Recommendations ASA Add statin Increase amlodipine. Continue BB, ACEi Continue low-dose Lasix therapy Daily weights, 2 Gm Na restriction Again discussed further workup with right heart cath. Patient would prefer on an outpatient basis; daughter encouraging workup sooner than later. Patient would like to think about it. SHANTANU MUNROE APRN Dec 27, 2018 08:59
[2018-12-27] MEDS ORDERED: ALLOPURINOL 100 MG TABLET. PO SCH (09:00)
[2018-12-27] MEDS ORDERED: PARICALCITOL 1 MCG PO SCH (09:00)
[2018-12-27] MEDS ORDERED: amLODIPine BESYLATE 5 MG TABLET PO SCH (09:00)
[2018-12-27] MEDS ORDERED: FLU VAX QS 2019-20 (36MOS+)/PF 0.5 ML SYRINGE. VAX IM ONE ×3 (09:00)
[2018-12-27] MEDS ORDERED: POTASSIUM CHLORIDE 20 MEQ TABLET.ER. PO ONE (09:15)
[2018-12-27] MEDS ORDERED: amLODIPine BESYLATE 5 MG TABLET PO ONE (09:30)
[2018-12-27 10:46] VITALS: BP 160/83
[2018-12-27 11:08] VITALS: BP 172/80
[2018-12-27 13:02] VITALS: BP 141/84
--- NOTE | 2018-12-27 18:03 | DS ---
DATE OF DISCHARGE: 12/27/2018 HOSPITAL COURSE: The patient is an 78-year-old female patient who was admitted with accelerated hypertension. She was evaluated in the Emergency Room, was found to have hypokalemia, hypomagnesemia, has 3 sets of cardiac enzymes that felt to be demand ischemia due to hypertension. Her potassium and magnesium were replenished. Her high blood pressure was well controlled. She has had an echocardiogram done yesterday, which showed that she has mild mitral valve stenosis and with calculated mitral valve area of 1.2 square cm with maximum pressure gradient of 30 mmHg. She also has moderate mitral regurgitation, severe tricuspid regurgitation and severe pulmonary hypertension with pulmonary artery pressure greater than [address]. [address] Duval thought that he will transfer her to [facility] to undergo a right heart catheterization and transesophageal echocardiogram; however, this procedure was postponed to be done as an outpatient and as the patient's blood pressure, potassium and magnesium were replenished and decision was made to discharge her home and to follow with the Cardiology team as an outpatient. PHYSICAL EXAMINATION: GENERAL: When I saw her this afternoon, she looked well and was clearly in no apparent respiratory distress. No pallor, jaundice, cyanosis or thyromegaly. No jugular venous distention or limb edema. VITAL SIGNS: Her heart rate was 62, blood pressure was 141/84, temperature was 97.7, respiratory rate was 18 and oxygen saturation was 95%. HEAD, EYES, EARS, NOSE AND THROAT: Showed normocephalic, atraumatic. NECK: Supple. HEART: Showed normal first and second heart sounds. No gallop or murmur. CHEST: Clear to auscultation. No crepitation or rhonchi. ABDOMEN: Distended, soft, nontender. No guarding or rigidity. No organomegaly. All hernial orifice intact. Bowel sounds normal. NEUROLOGIC: She is legally blind, but otherwise all her cranial nerves are intact. She moves extremities without difficulty. She ambulates without assistance. Her intake was 1300, output was 700. LABORATORY DATA: This morning showed a serum sodium 140, potassium 3.4, chloride 100, bicarbonate 33, anion gap of 7, BUN 12, creatinine 1.6, estimated GFR was 37 mL per minute. Her glucose was 83, calcium was 9. Her white cell count was 8200, hemoglobin 12, hematocrit 37, MCV 94 and platelet count 238,000. FINAL DISCHARGE DIAGNOSES: 1. Accelerated hypertension, much better controlled. 2. Mild troponin elevation, felt to be secondary to demand ischemia. 3. Rheumatic valvular heart disease with moderate mitral regurgitation, severe tricuspid regurgitation. 4. Severe pulmonary hypertension with pulmonary artery pressure of 80 mmHg. 5. Chronic kidney disease, stable. 6. Hyperlipidemia. 7. Hypokalemia, resolved. 8. Hypomagnesemia, resolved. DARIN PATEL MD DR: ALVARO/ginger JOB#: [id number] / [id number]
[2018-12-27] MEDS ORDERED: ATORVASTATIN CALCIUM 20 MG TABLET PO SCH (21:00)
[2018-12-28] MEDS ORDERED: amLODIPine BESYLATE 10 MG TABLET PO SCH (09:00)
== END 2018-12-27 15:15 | disposition home or self-care (01) | DRG 291 ==
LOC: ER 15:56 → 1 SOUTH 19:00 → ER 20:27
PROVIDERS: ADMIT Internal Medicine; ATTEND Internal Medicine
DX: I13.0 Hypertensive heart and chronic kidney disease with heart failure and stage 1 through stage 4 chronic kidney disease, or unspecified chronic kidney disease (principal); I50.33 Acute on chronic diastolic (congestive) heart failure; I24.8 Other forms of acute ischemic heart disease; N18.3 Chronic kidney disease, stage 3 (moderate); E87.6 Hypokalemia; H40.9 Unspecified glaucoma; E83.42 Hypomagnesemia; E78.5 Hyperlipidemia, unspecified; H54.8 Legal blindness, as defined in USA; I25.10 Atherosclerotic heart disease of native coronary artery without angina pectoris; I27.20 Pulmonary hypertension, unspecified; I48.91 Unspecified atrial fibrillation; K21.9 Gastro-esophageal reflux disease without esophagitis; Z80.9 Family history of malignant neoplasm, unspecified; Z82.49 Family history of ischemic heart disease and other diseases of the circulatory system; Z82.5 Family history of asthma and other chronic lower respiratory diseases; Z98.41 Cataract extraction status, right eye; Q12.0 Congenital cataract; Z98.42 Cataract extraction status, left eye; M10.9 Gout, unspecified; M19.90 Unspecified osteoarthritis, unspecified site; Z90.49 Acquired absence of other specified parts of digestive tract; Z98.51 Tubal ligation status
CPT/HCPCS: 36415; 71045; 80048; 80053; 80061; 81001; 83735; 83880; 84484; 85025; 90471; 90686; 93005; 93306; 96374; G0238; J1650; J1940; J3475; 99285-25

== ENCOUNTER 2020-04-27 11:47 | Inpatient (IN) | payer MEDICARE, OTHER ==
[~2020-04-27] VITALS: Ht 154.9 cm; Wt 87.0 kg
[~2020-04-27 11:47] MED LIST changes: +ALLO100T PO; +FURO40TA4 PO; +LOSA25TA11 PO; +METO200T46 PO; +OMEP40CA45 PO; +PARI1CAP PO; +RAMI10CA53 PO
--- NOTE | 2020-04-27 12:02 | RAD ---
CT scan of the head without contrast 04/27/2020 Clinical History: Right-sided weakness. Code stroke. Technique: Unenhanced, contiguous, 5 mm axial sections were obtained through the head. One or more of the following individualized dose reduction techniques were utilized for this study: 1. Automated exposure control. 2. Adjustment of the mA and/or kV according to patient size. 3. Use of iterative reconstruction technique. Findings: Comparison study is dated 01/06/2016. There is generalized parenchymal atrophy. Areas of decreased attenuation are seen within the perivent ricular and subcortical white matter of both cerebral hemispheres consistent with areas of small vess el ischemic disease. No acute parenchymal abnormality is seen. No extra-axial fluid collection is not ed. No skull fracture is seen. Impression: No acute intracranial abnormality is seen. This result was called to Dr. Segundo 1159 hours. FOR INTERNAL CODING PURPOSES RESULT CODE: (C) Electronically signed by: Denny Belcher MD (04/27/2020 11:59 AM) [id number]
--- NOTE | 2020-04-27 12:14 | PHYS DOC ---
Past History Past Medical History: Bronchitis, Hypertension, Renal Disease Past Surgical History: Cholecystectomy, Tubal ligation, Other Additional Past Surgical Histo: back surgery Alcohol Use: None Drug Use: None Adult General Chief Complaint Chief Complaint: NEURO SYMPTOMS/DEFICITS [facility] Patient is a 79F with a past medical history of hypertension presenting to the emergency department for new onset of altered mental status. Family states that this morning around 630 the interacted with the patient and she was acting normally. However sometime afterwards the patient became confused. Family notes approximate 30 minutes ago the patient was having decreased movement on her right side. No reported recent illness, fever, chills or headache. Patient is currently unresponsive and unable to provide any significant history Review of Systems Review of Systems Constitutional: Denies fever or chills [] Eyes: Denies change in visual acuity, redness, or eye pain [] HENT: Denies nasal congestion or sore throat [] Respiratory: Denies cough or shortness of breath [] Cardiovascular: No additional information not addressed in HPI [] GI: Denies abdominal pain, nausea, vomiting, bloody stools or diarrhea [] : Denies dysuria or hematuria [] Musculoskeletal: Denies back pain or joint pain [] Integument: Denies rash or skin lesions [] Neurologic: Denies headache, focal weakness or sensory changes [] Endocrine: Denies polyuria or polydipsia [] All other systems were reviewed and found to be within normal limits, except as documented in this note. Allergies Allergies Allergies Coded Allergies Type Severity Reaction Last Updated Verified No Known Drug Allergies 12/25/18 No Physical Exam Physical Exam Constitutional: Well developed, well nourished, no acute distress, non-toxic appearance. [] HENT: Normocephalic, atraumatic, bilateral external ears normal, oropharynx moist, no oral exudates, nose normal. [] Eyes: PERRLA, EOMI, conjunctiva normal, no discharge. [] Neck: Normal range of motion, no tenderness, supple, no stridor. [] Cardiovascular:Heart rate regular rhythm, no murmur [] Lungs & Thorax: Bilateral breath sounds clear to auscultation [] Abdomen: Bowel sounds normal, soft, no tenderness, no masses, no pulsatile masses. [] Skin: Warm, dry, no erythema, no rash. [] Back: No tenderness, no CVA tenderness. [] Extremities: No tenderness, no cyanosis, no clubbing, ROM intact, no edema. [] Neurologic: Exam limited as patient is unresponsive. GCS of 9. Does respond to noxious stimuli. Appears to be decreased strength in the right face and right upper extremity compared to the left Psychologic: Affect normal, judgement normal, mood normal. [] Current Patient Data Vital Signs Vital Signs Date Time Temp Pulse Resp B/P (MAP) Pulse Ox O2 Delivery O2 Flow Rate FiO2 04/27/20 11:47 94 16 109/60 (76) 94 Room Air EKG EKG [] Radiology/Procedures Radiology/Procedures [] Heart Score Risk Factors: Risk Factors: DM, Current or recent (<one month) smoker, HTN, HLP, family history of CAD, obesity. Risk Scores: Risk Factors: DM, Current or recent (<one month) smoker, HTN, HLP, family history of CAD, obesity. Course & Med Decision Making Course & Med Decision Making Pertinent Labs and Imaging studies reviewed. (See chart for details) 79-year-old female presenting the emergency department with new onset of significant altered mental status and right-sided neurologic deficits raising concern for an acute CVA. Initial CT scan was obtained without any significant evidence of bleed however given the patient's level of symptoms will obtain a CT angiogram and full labs to make sure there is no other underlying etiology. 13:36 -initial lab work does demonstrate elevated creatinine and potassium of 6.2. Patient is being treated at this time. However CT of the head was negative for any evidence of bleeding. Initially ordered a CT angiogram however due to concern for acute renal injury this has been delayed. Discussed the case with Dr. Medrano who does not feel that the patient needs any immediate imaging of the head is currently recommending carotid Doppler study and admission with aspirin. Dragon Disclaimer Dragon Disclaimer This electronic medical record was generated, in whole or in part, using a voice recognition dictation system. Departure Departure: Impression: Primary Impression: Altered mental status Disposition: 09 ADMITTED INPT THIS HOSP Condition: GUARDED KILO STARR MD Apr 27, 2020 12:14
[2020-04-27] MEDS ORDERED: IOHEXOL 350 MG/ML 100 ML VIAL. IV ONE (12:15)
[2020-04-27 12:16] LABS: HEMATOCRIT 37.1 % (36.0-47.0); HEMOGLOBIN 12.1 g/dL (12.0-15.5); RED BLOOD COUNT 3.83 x10^6/uL (3.50-5.40); RED CELL DISTRIBUTION WIDTH 13.6 % (11.5-14.5); WHITE BLOOD COUNT 9.9 x10^3/uL (4.0-11.0)
[2020-04-27 13:03] LABS: CALCIUM 8.8 mg/dL (8.5-10.1); GFR 18.1
[2020-04-27 13:08] LABS: POTASSIUM 6.2 mmol/L (3.5-5.1)
[2020-04-27] MEDS ORDERED: SODIUM BICARB ADULT 8.4% 50 MEQ/50 ML DISP.SYRIN. IV ONE ×2 (13:15→18:45)
[2020-04-27] MEDS ORDERED: FUROSEMIDE 40 MG/4 ML VIAL IVP ONE (13:15)
[2020-04-27] MEDS ORDERED: CALCIUM GLUCONATE 1,000 MG/10 ML VIAL IV ONE ×2 (13:15→16:15)
[2020-04-27] MEDS ORDERED: DEXTROSE 50% 25 GM / 50ML DISP.SYRIN. IV ONE ×2 (13:15→18:45)
[2020-04-27] MEDS ORDERED: INSULIN REGULAR 100 UNIT/ML 3ML VIAL. IV ONE ×2 (13:15→18:45)
--- NOTE | 2020-04-27 13:25 | EKG ---
[address] [address] Test Date: 2020-04-27 Test Time: 11:58:32 Pat Name: MAGDA ROSALES Department: Room: Gender: F Ditch Cleaner: OZZIE : 1940 Requested By: KILO STARR Order Number: [id number] Reading MD: Measurements Intervals [place] Rate: 91 P: TX: QRS: 50 QRSD: 60 T: 28 QT: 332 QTc: 410 Interpretive Statements IRREGULAR RHYTHM, NO P-WAVE FOUND LOW VOLTAGE ABNORMAL ECG RI6.02 No previous ECG available for comparison
[2020-04-27] MEDS ORDERED: ASPIRIN CHEWABLE 81 MG TABLET. PO ONE (13:30)
[2020-04-27] MEDS ORDERED: ONDANSETRON PF 4 MG/2 ML VIAL. IVP PRN ×2 (14:00→16:00)
--- NOTE | 2020-04-27 14:18 | RAD ---
EXAM: Carotid Doppler sonogram. HISTORY: Right-sided weakness. Atherosclerosis. TECHNIQUE: Joshi scale and color Doppler sonographic evaluation of the neck with spectral waveform nathalie lysis was performed and static images are submitted for review. FINDINGS: There is atherosclerotic plaque within the bulbs and proximal internal and external carotid arteries. The peak systolic velocity within the right common carotid artery is 54 cm/sec. The peak systolic jeffrey ocity within the right internal carotid artery is 46 cm/sec and the end diastolic velocity within the right internal carotid artery is 18 cm/sec. The right ICA/CCA ratio is 1.0. The peak systolic velocity within the left common carotid artery is 48 cm/sec. The peak systolic [place] within the left internal carotid artery is 33 cm/sec and the end diastolic velocity within the l eft internal carotid artery is 10 cm/sec. The left ICA/CCA ratio is less than 1.0. There is normal antegrade flow within both vertebral arteries. IMPRESSION: No Doppler evidence of greater than 50 percent stenosis involving the internal carotid ar teries. PQRS Compliance Statement - Stenosis calculations for CT, MR and conventional angiography are based u marixa measurement of the distal ICA diameter in accordance with the NASCET methodology. Stenosis calcu lations for carotid ultrasound studies are derived from validated velocity criteria which are known t o correlate with the NASCET methodology. Electronically signed by: Johanne Esqueda MD (04/27/2020 2:16 PM) [id number]
--- NOTE | 2020-04-27 14:22 | RAD ---
EXAM: Chest, single view. HISTORY: Syncope. COMPARISON: None. FINDINGS: A frontal view of the chest is obtained. There is no infiltrate, pleural effusion or pneumo thorax. There is a stable prominent cardiac silhouette. IMPRESSION: No acute pulmonary finding. Electronically signed by: Johanne Esqueda MD (04/27/2020 2:19 PM) [id number]
--- NOTE | 2020-04-27 15:30 | NUR ---
The patient, MAGDA ROSALES, 79 y/o, F admitted by DARIN PATEL MD, was given written information regarding hospital policies, unit procedures and contact persons. Valuables were checked and left with patient. Pt unresponsive only responds to painful stimuli. Unable to answer questions or arousable to name. Airway intact. Medical hx gathered from patient daughter Venus and both nieces Luann and Carie. WCM.
[2020-04-27] MEDS ORDERED: ACETAMINOPHEN 325 MG TABLET PO PRN (16:00)
[2020-04-27] MEDS ORDERED: IV NORMAL SALINE 1,000ML 1,000 ML IV SCH (16:15)
--- NOTE | 2020-04-27 16:32 | HP ---
ADMIT DATE: 04/27/2020 HISTORY OF PRESENT ILLNESS: The patient is an 79-year-old female patient, who was brought to the Emergency Room with altered mental status. The family stated that this morning around 6:30 they have interacted with the patient and she was acting normally; however, sometimes afterwards, the patient became confused and approximately 30 minutes prior to arrival to the Emergency Room she was having decreased movement in her right side. No reported recent illnesses, fever, chills or headache. By the time she arrived to the Emergency Room, she was unresponsive and unable to provide any significant history. On clinical examination, her [place] coma scale was 9. She does respond to noxious stimuli, appears to have decreased strength on the right face, right upper and right lower extremity. She was extensively investigated and has had lab work, which showed that her CBC was unremarkable. Her chemistry showed that she has hyperkalemia with a potassium 6.2 and chronic kidney disease with the BUN of 40, creatinine 3. Her PT, INR and aPTT were normal. She had had a CT scan done, which basically showed that there is generalized parenchymal atrophy with areas of decreased attenuation are seen within the periventricular and subcortical white matter on both cerebral hemispheres consistent with areas of small vessel ischemic disease, no acute parenchymal abnormality is seen. No extraaxial fluid collection is noted. No skull fracture is seen. Her bilateral carotid Doppler showed no evidence of greater than 50% stenosis involving the internal carotid arteries and her chest x-ray showed no acute pulmonary finding. The patient was admitted with altered mental status and likely left middle cerebral artery territory infarct with right sided hemiplegia and right sided facial droop. PAST MEDICAL HISTORY: Significant for hypertension, hyperlipidemia, chronic kidney disease, rheumatic fever, glaucoma and she is legally blind. PAST SURGICAL HISTORY: Significant for back surgery, cholecystectomy, tubal ligation, bilateral cataract extraction. ALLERGIES: She has no known drug allergies. MEDICATIONS: She is currently on following medications: She is on metoprolol succinate 200 mg once a day, ramipril 10 mg once a day, furosemide 40 mg once a day, omeprazole 40 mg once a day, paricalcitol 1 mcg for Zemplar once a day and allopurinol 100 mg once a day. FAMILY HISTORY: She has one sister still alive and is older. She has two brothers who of cancer. One brother of emphysema. One sister of cancer and one sister of emphysema. Both parents are , they when she was young. SOCIAL HISTORY: She is , has 2 daughters and 1 son. She never smoked, does not drink alcohol or use any recreational drugs. She is currently retired. REVIEW OF SYSTEMS: Unobtainable. PHYSICAL EXAMINATION: GENERAL: On arrival to the Emergency Room, there was no pallor, jaundice or cyanosis. No lymphadenopathy, no thyromegaly. No jugular venous distention. No lower limb edema. VITAL SIGNS: Her heart rate was 94, blood pressure was 109/60, temperature was 98, respiratory rate was 16, and oxygen saturation was 94% on room air. HEAD, EYES, EARS, NOSE AND THROAT: Showed normocephalic, atraumatic. NECK: Supple. HEART: Showed normal first and second heart sounds. No gallop or murmur. CHEST: Clear to auscultation. No crepitation or rhonchi. ABDOMEN: Distended, soft, nontender. NEUROLOGIC: She was unresponsive. She has [place] coma scale of 9. She has right sided facial droop and flaccid right upper and right lower extremity. LABORATORY WORK: Showed a white cell count 9900, hemoglobin 12, hematocrit 37, MCV 97 and platelet count of 339,000. Her chemistry showed a serum sodium 138, potassium 6.2, chloride 102, bicarbonate 29, anion gap of 7, BUN 40, creatinine 3, estimated GFR was 18 mL per minute. Her glucose was 97 and calcium was 8.8. Her prothrombin time, INR and aPTT are all normal. ASSESSMENT AND PLAN: In summary, this is an 79-year-old -[place] female patient who was admitted with altered mental status. She is unresponsive with a Rama coma scale of 9. She has right sided facial droop and right sided flaccid right upper and right lower extremity, finding consistent with probably a left middle cerebral artery territory infarct with right sided hemiplegia. The patient will be kept n.p.o. She has hyperkalemia as well as chronic kidney disease. Her most recent serum creatinine on 12/27/2018 was 1.6, so she probably has acute on chronic kidney injury. Given that she probably is unresponsive and she will not be able to swallow, I will hold all her medication. We will start her on IV fluid. We will also order calcium gluconate, scan her bladder to make sure that she is not retaining urine and repeat her lab work and if necessary, we can use sodium bicarbonate, insulin and glucose. DARIN PATEL MD DR: ALVARO/ginger JOB#: [id number] / [id number]
[2020-04-27] MEDS ORDERED: AMLO-187 PO (17:50)
[2020-04-27] MEDS ORDERED: MAGN400C PO (17:50)
[2020-04-27] MEDS ORDERED: POTA10TA5 PO (17:50)
[2020-04-27 18:12] VITALS: BP 108/62
[2020-04-27 18:29] LABS: CALCIUM 9.9 mg/dL (8.5-10.1); CREATININE 2.9 mg/dL (0.6-1.0); GFR 18.8
[2020-04-27] MEDS ORDERED: ENOXAPARIN ** NOTE DOSE ** SYRINGE SQ SCH (18:30)
[2020-04-27 18:35] LABS: POTASSIUM 6.2 mmol/L (3.5-5.1)
[2020-04-27] MEDS: IV DEXTROSE 5 %-0.45 % NACL 1,000 ML IV SCH (19:31)
[2020-04-27 20:04] VITALS: BP 101/65
[2020-04-27 23:06] VITALS: BP 126/85
--- NOTE | 2020-04-28 01:50 | CONS ---
DATE OF CONSULTATION: 04/27/2020 NEUROLOGIC CONSULTATION REFERRING PHYSICIAN: Dr. Braswell. REASON FOR CONSULTATION: Acute stroke and mental status changes. HISTORY OF PRESENT ILLNESS: This is an 79-year-old right-handed female who was admitted through Emergency Room after she presented with acute onset of mental status changes. According to the ER chart, the patient was fine in the morning at around 6:30, but later on she started having acute mental status changes, then she became unresponsive. On arrival to Emergency Room, the patient was found unresponsive with right facial drooping and right upper and lower extremity weakness. The patient did not respond to commands. Initial nonenhanced head CT scan revealed no evidence of acute intracranial findings as hemorrhage, but has cortical atrophy with extensive periventricular hypodensity consistent with small vessel ischemic changes. The patient was found to have hyperkalemia with elevated creatinine consistent with renal failure. While the patient was in the Emergency Room, I received a call for consultation. Subsequently, carotid Doppler study was consistent with narrowing at the range of 50%. The patient was admitted for further stroke management. The patient could not have neck or brain CT angio due to renal failure and elevated creatinine and BUN. During the evaluation, the patient was unresponsive, but moved her left upper and lower extremity to noxious stimuli. PAST MEDICAL HISTORY: Significant for hypertension, hyperlipidemia, chronic kidney disease, rheumatoid fever, glaucoma and legal blindness. PAST SURGICAL HISTORY: Positive for cholecystectomy, tubal ligations, bilateral cataract extraction and lumbosacral spine surgery. FAMILY HISTORY: Not obtainable. SOCIAL HISTORY: Not obtainable. ALLERGIES: No known drug allergies. REVIEW OF SYSTEMS: A 12-point review of system was performed as mentioned above in history of present illness. PHYSICAL EXAMINATION: GENERAL: Well-developed, well-nourished female, not in acute distress. She weighs 87 kilos. VITAL SIGNS: Blood pressure 108/62, respiratory rate 20, pulse is 101, temperature 98.1, oxygen saturation 99% on room air. HEENT: Normocephalic, atraumatic. NECK: Supple, negative for carotid bruit, lymphadenopathy or thyromegaly. LUNGS: Diminished breath sounds bilaterally. CARDIOVASCULAR: Regular rhythm, normal S1, S2. There is no murmur. ABDOMEN: Soft. EXTREMITIES: Negative for cyanosis, clubbing or pitting edema. NEUROLOGICAL EXAM: Mental Status: The patient is unresponsive, but moved her left upper and lower extremity to noxious stimuli. Cranial nerves: Pupils are equal and sluggishly reactive to light and the extraocular movements are slow, but no nystagmus. There is mild right facial asymmetry for central origin. Gag reflex is weak, but positive. Further evaluation is limited at this time. Motor examination: The patient has right dense hemiparesis, but she moves her left upper and lower extremities to noxious stimuli. Sensory examination revealed diminished pinprick and light touch senses over the right upper and lower extremities. Deep tendon reflexes were hypoactive with positive Babinski on the right side. Gait not done due to unresponsiveness. DIAGNOSTIC DATA: Initial nonenhanced head CT scan as mentioned above in history of present illness. Carotid Doppler study as mentioned above in the history of present illness. Chest x-ray revealed no acute cardiopulmonary process. LABORATORY DATA: CBC revealed white blood cells of 9.9 thousand, hemoglobin 12.1, hematocrit 37.1, platelet count 339,000. Chemistry: Sodium of 140, potassium 6.2, chloride 103, CO2 of 30, BUN 38, creatinine 2.9, glucose 79, calcium 9.9. Liver enzymes are low. Troponin level is normal. ____ is high at 6859, high cholesterol at 226 with high LDL at 140 with normal HDL and triglycerides. Coagulation, normal. Urinalysis, no urinary tract infections. IMPRESSION: 1. Acute stroke in the left MCA territory, presented with unresponsiveness with dense right hemiparesis. 2. Atrial fibrillation, may have contributed to the stroke. 3. Multiple medical problems include acute and chronic renal failure, hyperlipidemia, hyperkalemia, history of hypertension. RECOMMENDATION: 1. Acute stroke workup including echocardiogram. 2. Cardiology consult. 3. Start the patient on Lovenox at 1 mg/kg. 4. Further evaluation includes dysphasia evaluation with speech therapy. 5. Correct the underlying metabolic derangement and stroke rehabilitation. M Michael WAGNER MD DR: SHI/ginger JOB#: [id number] / [id number]
[2020-04-28] MEDS: IV DEXTROSE 5 %-0.45 % NACL 1,000 ML IV SCH ×2 (03:12→13:11)
[2020-04-28 05:53] VITALS: BP 95/66
--- NOTE | 2020-04-28 06:17 | NUR ---
Pt laying in bed when approached for assessment. Pt has moderate weakness in right arm and facial drooping in right side of face. Pt is responsive to painful stimuli and could move right leg up off the bed. Pt will shake head to yes or no questions. Bed alarm is in place. Will continue to monitor.
[2020-04-28 06:30] LABS: BASO # 0.1 x10^3/uL (0.0-0.2); BASO % 1 % (0-3); EOS % 0 % (0-3); HEMATOCRIT 33.4 % (36.0-47.0); LYMPH # 1.1 x10^3/uL (1.0-4.8); LYMPH % 11 % (24-48); MEAN CORPUSCULAR HEMOGLOBIN 32 pg (25-35); MEAN CORPUSCULAR HGB CONC 33 g/dL (31-37); MEAN CORPUSCULAR VOLUME 96 fL (79-100); MONO # 0.6 x10^3/uL (0.0-1.1); MONO % 5 % (0-9); NEUT # 8.8 x10^3uL (1.8-7.7); NEUT % 83 % (31-73); PLATELET COUNT 265 x10^3/uL (140-400); RED BLOOD COUNT 3.48 x10^6/uL (3.50-5.40); RED CELL DISTRIBUTION WIDTH 13.2 % (11.5-14.5); WHITE BLOOD COUNT 10.6 x10^3/uL (4.0-11.0)
[2020-04-28 06:44] LABS: ALBUMIN 2.7 g/dL (3.4-5.0); ALBUMIN/GLOBULIN RATIO 0.7 (1.0-1.7); CALCIUM 8.8 mg/dL (8.5-10.1); CREATININE 2.3 mg/dL (0.6-1.0); GFR 24.6; PHOSPHORUS 2.6 mg/dL (2.6-4.7); POTASSIUM 4.6 mmol/L (3.5-5.1); TOTAL BILIRUBIN 0.5 mg/dL (0.2-1.0); TOTAL PROTEIN 6.5 g/dL (6.4-8.2)
--- NOTE | 2020-04-28 08:12 | PDOC2 ---
CARDIAC CONSULT DATE OF CONSULT DOS: DATE: 04/28/20 TIME: 07:59 REASON FOR CONSULT Reason for Consult AFIB, no anticoagulation REFERRING PHYSICIAN Referring Physician Dr. Medrano SOURCE Source: Chart review HPI History of Present Illness This is an 79 yo female who presented secondary to altered mental status. Was reported at baseline around 6:30 this morning. Patient then developed some confusion. About 30 mins prior to arrival, family noted weakness in her right side, which prompted transfer to the ED. HPI obtained from jaxon review as patient is currently unresponsive and unable to provide any history. Per record review, patient was diagnosed with AFIB in January of 2020. Patient was seen in our clinic by Dr. Duval. At that time, patient was very adamant that she was not interested in any work up for her AFIB. Stroke risk was d iscussed. She was not willing to take any medications such as anticoagulants and she did not want any changes to her medical regimen. PAST MEDICAL HISTORY Cardiovascular: HTN, hyperipidemia Renal/: Chronic renal insuff PAST SURGICAL HISTORY Past Surgical History: Cholecystectomy, Cataract Removal, Tubal Ligation, Other (back surgery ) FAMILY HISTORY Family History: Cancer, Heart Disease, Stroke SOCIAL HISTORY Smoke: No ALCOHOL: none Drugs: None Lives: with Family CURRENT MEDICATIONS Current Medications Current Medications Iohexol (Omnipaque 350 Mg/ml) 100 ml 1X ONCE IV ; Start 04/27/20 at 12:15; Stop 04/27/20 at 12:18; Status DC Calcium Gluconate (Calcium Gluconate) 1,000 mg 1X ONCE IV Last administered on 04/27/20at 14:09; Start 04/27/20 at 13:15; Stop 04/27/20 at 13:16; Status DC Sodium Bicarbonate (Sodium Bicarb Adult 8.4% Syr) 50 meq 1X ONCE IV Last administered on 04/27/20at 14:15; Start 04/27/20 at 13:15; Stop 04/27/20 at 13:16; Status DC Dextrose (Dextrose 50%-Water Syringe) 25 gm 1X ONCE IV Last administered on 04/27/20at 14:21; Start 04/27/20 at 13:15; Stop 04/27/20 at 13:16; Status DC Insulin Human Regular (HumuLIN R VIAL) 10 unit 1X ONCE IV Last administered on 04/27/20at 14:17; Start 04/27/20 at 13:15; Stop 04/27/20 at 13:16; Status DC Furosemide (Lasix) 40 mg 1X ONCE IVP Last administered on 04/27/20at 14:09; Start 04/27/20 at 13:15; Stop 04/27/20 at 13:16; Status DC Aspirin (Aspirin Chewable) 324 mg 1X ONCE PO ; Start 04/27/20 at 13:30; Stop 04/27/20 at 13:31; Status DC Ondansetron HCl (Zofran) 4 mg PRN Q4HRS PRN IVP NAUSEA/VOMITING; Start 04/27/20 at 14:00; Stop 04/28/20 at 07:29; Status DC Acetaminophen (Tylenol) 650 mg PRN Q6HRS PRN PO Headaches, Temp > 101.5F; Start 04/27/20 at 16:00 Ondansetron HCl (Zofran) 4 mg PRN Q8HRS PRN IVP NAUSEA/VOMITING; Start 04/27/20 at 16:00 Sodium Chloride 1,000 ml @ 150 mls/hr Q6H40M IV Last administered on 04/27/20at 16:32; Start 04/27/20 at 16:15; Stop 04/27/20 at 20:03; Status DC Calcium Gluconate (Calcium Gluconate) 1,000 mg 1X ONCE IV Last administered on 04/27/20at 16:53; Start 04/27/20 at 16:15; Stop 04/27/20 at 16:16; Status DC Enoxaparin Sodium (Lovenox 80mg Syringe) 80 mg Q24H SQ Last administered on 04/27/20at 19:30; Start 04/27/20 at 18:30 Sodium Bicarbonate (Sodium Bicarb Adult 8.4% Syr) 50 meq 1X ONCE IV Last administered on 04/27/20at 18:45; Start 04/27/20 at 18:45; Stop 04/27/20 at 18:49; Status DC Insulin Human Regular (HumuLIN R VIAL) 10 unit 1X ONCE IV Last administered on 04/27/20at 18:45; Start 04/27/20 at 18:45; Stop 04/27/20 at 18:49; Status DC Dextrose (Dextrose 50%-Water Syringe) 25 gm 1X ONCE IV Last administered on 04/27/20at 19:27; Start 04/27/20 at 18:45; Stop 04/27/20 at 18:49; Status DC Dextrose/Sodium Chloride 1,000 ml @ 100 mls/hr Q10H IV Last administered on 04/28/20at 03:12; Start 04/27/20 at 18:45 Active Scripts Active Reported Furosemide 40 Mg Tablet 40 Mg PO DAILY Omeprazole 40 Mg Capsule.dr 40 Mg PO DAILY Ramipril 10 Mg Capsule 10 Mg PO DAILY Zemplar (Paricalcitol) 1 Mcg Capsule 1 Mcg PO 3X/WEEK 30 Days Monday, monday, monday Metoprolol Succinate ( Xl ) (Metoprolol Succinate) 200 Mg Tab.er.24h 200 Mg PO DAILY ALLERGIES Allergies: Coded Allergies: No Known Drug Allergies (Unverified , 12/25/18) ROS Review of Systems unobtainable PHYSICAL EXAM General: Alert, No acute distress, Other HEENT: Atraumatic, Mucous membr. moist/pink Lungs: Clear to auscultation Heart: Other (AFIB, rate controlled ) Abdomen: Soft Extremities: No edema Neuro: Other (non-verbal, right sided hemiparesis ) MUSCULOSKELETAL: Osteoarthritic changes both hands VITALS Vital Signs Vital Signs Date Time Temp Pulse Resp B/P (MAP) Pulse Ox O2 Delivery O2 Flow Rate FiO2 04/28/20 05:53 97.6 90 20 95/66 (76) 97 Room Air LABS LABS Laboratory Tests Test 04/27/20 12:02 04/27/20 12:03 04/27/20 12:43 04/27/20 18:13 White Blood Count 9.9 x10^3/uL (4.0-11.0) Red Blood Count 3.83 x10^6/uL (3.50-5.40) Hemoglobin 12.1 g/dL (12.0-15.5) Hematocrit 37.1 % (36.0-47.0) Mean Corpuscular Volume 97 fL (79-100) Mean Corpuscular Hemoglobin 32 pg (25-35) Mean Corpuscular Hemoglobin Concent 33 g/dL (31-37) Red Cell Distribution Width 13.6 % (11.5-14.5) Platelet Count 339 x10^3/uL (140-400) Troponin I Quantitative < 0.017 ng/mL (0-0.055) Glucose (Fingerstick) 98 mg/dL (70-99) Prothrombin Time 10.1 SEC (9.4-11.4) Prothromb Time International Ratio 1.0 (0.9-1.1) Activated Partial Thromboplast Time 23 SEC (23-33) Sodium Level 138 mmol/L (136-145) 140 mmol/L (136-145) Potassium Level 6.2 mmol/L (3.5-5.1) 6.2 mmol/L (3.5-5.1) Chloride Level 102 mmol/L (98-107) 103 mmol/L (98-107) Carbon Dioxide Level 29 mmol/L (21-32) 30 mmol/L (21-32) Anion Gap 7 (6-14) 7 (6-14) Blood Urea Nitrogen 40 mg/dL (7-20) 38 mg/dL (7-20) Creatinine 3.0 mg/dL (0.6-1.0) 2.9 mg/dL (0.6-1.0) Estimated GFR (Cockcroft-Gault) 18.1 18.8 Glucose Level 97 mg/dL (70-99) 79 mg/dL (70-99) Calcium Level 8.8 mg/dL (8.5-10.1) 9.9 mg/dL (8.5-10.1) Test 04/27/20 19:36 04/27/20 20:08 04/27/20 21:06 04/27/20 22:42 Glucose (Fingerstick) 84 mg/dL (70-99) 144 mg/dL (70-99) 130 mg/dL (70-99) 115 mg/dL (70-99) Test 04/28/20 00:17 04/28/20 02:49 04/28/20 05:40 04/28/20 05:58 Glucose (Fingerstick) 118 mg/dL (70-99) 127 mg/dL (70-99) 141 mg/dL (70-99) White Blood Count 10.6 x10^3/uL (4.0-11.0) Red Blood Count 3.48 x10^6/uL (3.50-5.40) Hemoglobin 11.0 g/dL (12.0-15.5) Hematocrit 33.4 % (36.0-47.0) Mean Corpuscular Volume 96 fL (79-100) Mean Corpuscular Hemoglobin 32 pg (25-35) Mean Corpuscular Hemoglobin Concent 33 g/dL (31-37) Red Cell Distribution Width 13.2 % (11.5-14.5) Platelet Count 265 x10^3/uL (140-400) Neutrophils (%) (Auto) 83 % (31-73) Lymphocytes (%) (Auto) 11 % (24-48) Monocytes (%) (Auto) 5 % (0-9) Eosinophils (%) (Auto) 0 % (0-3) Basophils (%) (Auto) 1 % (0-3) Neutrophils # (Auto) 8.8 x10^3uL (1.8-7.7) Lymphocytes # (Auto) 1.1 x10^3/uL (1.0-4.8) Monocytes # (Auto) 0.6 x10^3/uL (0.0-1.1) Eosinophils # (Auto) 0.0 x10^3/uL (0.0-0.7) Basophils # (Auto) 0.1 x10^3/uL (0.0-0.2) Sodium Level 139 mmol/L (136-145) Potassium Level 4.6 mmol/L (3.5-5.1) Chloride Level 103 mmol/L (98-107) Carbon Dioxide Level 29 mmol/L (21-32) Anion Gap 7 (6-14) Blood Urea Nitrogen 33 mg/dL (7-20) Creatinine 2.3 mg/dL (0.6-1.0) Estimated GFR (Cockcroft-Gault) 24.6 BUN/Creatinine Ratio 14 (6-20) Glucose Level 124 mg/dL (70-99) Calcium Level 8.8 mg/dL (8.5-10.1) Phosphorus Level 2.6 mg/dL (2.6-4.7) Total Bilirubin 0.5 mg/dL (0.2-1.0) Aspartate Amino Transf (AST/SGOT) 13 U/L (15-37) Alanine Aminotransferase (ALT/SGPT) 13 U/L (14-59) Alkaline Phosphatase 85 U/L (46-116) Total Protein 6.5 g/dL (6.4-8.2) Albumin 2.7 g/dL (3.4-5.0) Albumin/Globulin Ratio 0.7 (1.0-1.7) Test 04/28/20 07:39 Glucose (Fingerstick) 134 mg/dL (70-99) HEART CATH Heart Cath FINDINGS: 1. Hemodynamics: Normal left ventricular end-diastolic pressure of 15 mmHg. No pullback gradient across the aortic valve. 2. Left ventriculography: Normal left ventricle systolic function with ejection fraction estimated at 60%. No significant mitral regurgitation seen. 3. Coronary angiography: a. The left main coronary artery arose from the left sinus of Valsalva, gave rise to the left anterior descending and left circumflex arteries and did not show any significant stenosis. b. The left anterior descending artery did not show any significant stenosis. c. The left circumflex artery did not show any significant stenosis. d. The right coronary artery was a large and dominant vessel arising from the right sinus of Valsalva that did not show any significant stenosis. Conclusion 1. No significant coronary artery disease 2. Normal left ventricle systolic function with ejection fraction estimated at 60% 3. No significant mitral regurgitation or aortic stenosis. DATE: 02/04/14 1143 ASSESSMENT/PLAN Assessment/Plan 1. Altered mental status, unresponsiveness with right hemiparesis; CT head without acute findings. Suspected left MCA territory infarct; as per neurology. Carotid US with significant stenosis 2. PAFIB; rate controlled. Was seen in our clinic 01/27 for new onset AFIB. she declined any cardiac workup and anticoagulation therapy 3. ARLETTE on CKD; Cr down to 2.3 4. Hyperkalemia; resolved 5. Hypertension; low end 6. Hyperlipidemia Recommendations Echo to assess LV systolic function, presence of valvular anomalies TSH, lipids Anticoagulated with treatment dosing Lovenox. Patient adamantly refused anticoagulation therapy at clinic visit with Dr. Duval as above in HPI. She also declined any further workup for her AFIB. Add rectal ASA Statin therapy if able to take oral Hold Lasix therapy, ACEi Hold norvasc, metoprolol with hypotension. Can use IV Dig for rate control while hypotensive Supportive care Will need to discuss code status with family. Further pending above SHANTANU MUNROE APRN Apr 28, 2020 08:12
[2020-04-28] MEDS ORDERED: ASPIRIN RECTAL 300 MG SUPP. PR SCH (09:00)
[2020-04-28 11:10] VITALS: BP 96/62
--- NOTE | 2020-04-28 11:38 | PN ---
DATE: 04/28/2020 SUBJECTIVE: The patient continued to be unresponsive verbally probably due to left MCA acute stroke. OBJECTIVE: GENERAL: Well-developed, well-nourished female, not in acute distress. VITAL SIGNS: Blood pressure 195/66, respiratory rate 20, pulse is 90 regular, oxygen saturation 97% on room air, and temperature 97.6. HEENT: Normocephalic, atraumatic, otherwise unremarkable. NEUROLOGIC: Cranial nerves unchanged from previous exam. She continues to have very mild right facial asymmetry. Motor examination consistent with dense right hemiparesis with positive Babinski on the right side. Deep tendon reflexes were symmetric and hypoactive with absent Achilles responses. LABORATORY DATA: CBC revealed white blood cells of 10.6 thousand, hemoglobin 11, hematocrit 33.4, platelet count 265,000. Chemistry revealed sodium of 139, potassium 4.6, chloride 103, CO2 of 29, BUN 33, creatinine 2.3, glucose is 124, calcium 8.8. EKG is consistent with atrial fibrillation. IMPRESSION: 1. Status post acute stroke, presented with left MCA territories with aphasia; however, the patient did follow 1-step commands on the left side. 2. Probably new findings of atrial fibrillation. However, the patient has been on high dose of metoprolol, which may indicate a history of cardiac arrhythmia in the past; however, the metoprolol dose is considered high. 3. Acute encephalopathy, probably due to new onset of stroke versus metabolic derangements and chronic and acute renal failure. 4. Hyperlipidemia. 5. Anemia of chronic type. RECOMMENDATION: Appreciate Cardiology consult. Await for echocardiogram. We will continue with current neurological recommendations. M Michael WAGNER MD DR: SHI/ginger JOB#: [id number] / [id number]
--- NOTE | 2020-04-28 13:45 | PN ---
DATE: 04/28/2020 SUBJECTIVE: The patient is resting, slightly propped up in bed, in no apparent distress. She is definitely more awake today. She is nonverbal, but she opens her eyes and follows command. PHYSICAL EXAMINATION: GENERAL: When I examined her, she looked well and was clearly in no apparent respiratory distress, is pale, but no jaundice, cyanosis or thyromegaly. No jugular venous distention or limb edema. VITAL SIGNS: Her heart rate was 116, blood pressure was 96/62, temperature was 98, respiratory rate 20, and oxygen saturation was 95% on room air. HEAD, EYES, EARS, NOSE, AND THROAT: Showed normocephalic, atraumatic. NECK: Supple. HEART: Showed normal first and second heart sounds. No gallop, rub or murmur. CHEST: Clear to auscultation. No crepitation or rhonchi. ABDOMEN: Distended, soft, nontender. NEUROLOGIC: She is definitely more awake today. She opens eyes and follows command. LABORATORY DATA: Her lab work this morning showed a white cell count of 10,600, hemoglobin 11, hematocrit 33, MCV 96, and platelet count 265,000. Serum sodium was 139, potassium 4.6, chloride 103, bicarbonate 29, anion gap of 7, BUN 33, creatinine 2.3, estimated GFR was 24 mL per minute. Her glucose 124, calcium was 8.8. Phosphorus 2.6. Total bilirubin, AST, ALT, alkaline phosphatase were normal. Total protein 6.5, albumin was 2.7. 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 Apparently, she was not anticoagulated. She has also multiple other medical problems including: A. Acute on chronic kidney injury. B. Hyperkalemia. C. Hyperlipidemia. D. Hypertension. PLAN: To continue with Lovenox 80 mg subcutaneously once a day. Continue with IV fluid. My plan is to repeat her CT scan of the head was discussed with the family. As she has dysphagia, she probably will need either a Dobhoff catheter and/or percutaneous gastrostomy tube and we will discuss with the family and if they want to continue with aggressive treatment, she will need to be transferred to [facility] for percutaneous endoscopic gastrostomy tube placement. DARIN PATEL MD DR: ALVARO/ginger JOB#: [id number] / [id number]
--- NOTE | 2020-04-28 14:59 | RAD ---
CT HEAD/BRAIN WO History: Reason: worsening level of consciousness / Spl. Instructions: / History: Comparison: April 27, 2020 Technique: Noncontrast CT imaging was performed of the head. Exposure: One or more of the following individualized dose reduction techniques were utilized for thi s examination: 1. Automated exposure control 2. Adjustment of the mA and/or kV according to patient size 3. Use of iterative reconstruction technique. Findings: New hypodensity within the left basal ganglia involving the caudate and putamen concerning for ischem ia. No intracranial hemorrhage. Mild mass effect on the anterior horn of the left lateral ventricle. No hydrocephalus. Mild brain parenchymal volume loss. Mild additional foci of decreased attenuation within the hemisphe yadi white matter, most often due to chronic microvascular ischemia. Imaged orbits are unremarkable. Imaged paranasal sinuses and mastoid air cells are clear. No acute ca lvarial fracture. TMJ arthropathy. Impression: 1. New hypodensity within the left basal ganglia, concerning for subacute infarct. Recommend MRI to further evaluate. FOR INTERNAL CODING PURPOSES Critical result: Findings discussed with patient's nurse at 04/28/2020 2:55 PM. RESULT CODE: (C) Electronically signed by: Trino Borden DO (04/28/2020 2:57 PM) [id number]
[2020-04-28 15:28] VITALS: BP 106/71
--- NOTE | 2020-04-28 17:35 | NUR ---
A decision was made to transfer the patient to [facility] due to condition. Patient needs a higher level of care. Patient has been lethargic, difficult to stimulate, but when stimulated can follow small commands but is still unable to verbalize. Patient does not open eyes on command. RUE and RLE are still flaccid with patient unable to control any movement of either extremity. Report was called to Lucas RANDOLPH at [facility] patient will be transferred room 202 via EMS.
== END 2020-04-28 17:15 | disposition short-term general hospital (02) | DRG 64 ==
LOC: ER 11:47 → 1 SOUTH 14:00
PROVIDERS: ADMIT Internal Medicine; ATTEND Internal Medicine
DX: I63.512 Cerebral infarction due to unspecified occlusion or stenosis of left middle cerebral artery (principal); G92 Toxic encephalopathy; E43 Unspecified severe protein-calorie malnutrition; N17.9 Acute kidney failure, unspecified; G81.91 Hemiplegia, unspecified affecting right dominant side; R40.2420 Glasgow coma scale score 9-12, unspecified time; R47.01 Aphasia; E87.5 Hyperkalemia; N18.9 Chronic kidney disease, unspecified; E78.5 Hyperlipidemia, unspecified; R79.89 Other specified abnormal findings of blood chemistry; I48.0 Paroxysmal atrial fibrillation; R29.810 Facial weakness; D64.9 Anemia, unspecified; H54.8 Legal blindness, as defined in USA; I12.9 Hypertensive chronic kidney disease with stage 1 through stage 4 chronic kidney disease, or unspecified chronic kidney disease; Z98.41 Cataract extraction status, right eye; Z98.42 Cataract extraction status, left eye; Z98.51 Tubal ligation status; Z90.49 Acquired absence of other specified parts of digestive tract; Z82.5 Family history of asthma and other chronic lower respiratory diseases; Z82.3 Family history of stroke; Z80.9 Family history of malignant neoplasm, unspecified; Z68.36 Body mass index [BMI] 36.0-36.9, adult
CPT/HCPCS: 36415; 70450; 71045; 80048; 80053; 80061; 82947; 84100; 84443; 84484; 85025; 85027; 85610; 85730; 93005; 93880; 96374; 96375; J0610; J1650; J1815; J1940; 99285-25; J7030